=== PATIENT | male | born 1940 | race Caucasian/White ===

== ENCOUNTER → 2018-08-12 05:11 | Day surgery (SDC) | payer OTHER ==
[~2018-08-12 05:11] MED LIST: COREG25 MG PO; COUMADIN2 MG PO; COUMADIN3 MG PO; CYMBALTA20 MG PO; FUROSEMIDE40 MG PO; ISOSORBIDE MONO30 M1 PO; LIPITOR40 MG PO; NITROQUICK0.4 MG SL; OMEPRAZOLE20 M1 PO; TEGRETOL 100 M100 MG PO; XOPENEX HFA15 GM INH; ZESTRIL40 MG PO; [UNRECOGNIZED DRUG - OTHER]
[2018-08-12 06:06] LABS: BASOPHILS 0.3 % (0-2); EOSINOPHILS 2.1 % (0-7); HEMATOCRIT 49.4 % (42.0-54.0); HEMOGLOBIN 16.4 g/dL (13.5-17.5); IMMATURE GRANULOCYTES 0.3 % (0-5); LYMPHOCYTES 38.2 % (15-50); MCH 30.1 pg (26.0-34.0); MCHC 33.2 g/dL (31.0-37.0); MCV 90.8 fL (80.0-100.0); MEAN PLATELET VOLUME 12.7 fL (7.4-10.4); NEUTROPHILS 50.1 % (40-80); PLATELET COUNT 154 10x3/uL (130-400); RBC 5.44 10x6/uL (4.20-6.10); RDW 14.5 % (11.5-14.5); WBC 7.3 10x3/uL (4.8-10.8)
[2018-08-12 06:16] LABS: APTT 28.5 SECONDS (22.8-39.4); INR 1.01 (0.85-1.17); PROTIME 12.9 SECONDS (11.6-15.0)
[2018-08-12 06:37] LABS: ALBUMIN 3.2 g/dL (3.4-5.0); ALKALINE PHOSPHATASE 96 U/L (46-116); ALT (SGPT) 25 U/L (10-68); BILIRUBIN - TOTAL 0.28 mg/dL (0.2-1.3); CALC OSMOLALITY 285 mosm/kg (275-300); CALCIUM 8.6 mg/dL (8.5-10.1); CARBON DIOXIDE 20.7 mmol/L (21.0-32.0); CHLORIDE - SERUM 110 mmol/L (98-107); CREATININE - SERUM 0.9 mg/dL (0.6-1.3); GLUCOSE 122 mg/dL (74-106); POTASSIUM - SERUM 4.1 mmol/L (3.5-5.1); PROTEIN - SERUM 7.6 g/dL (6.4-8.2); SODIUM 142 mmol/L (136-145); UREA NITROGEN 18 mg/dL (7-18); eGFR NON AFRICAN AMERICAN 87 mL/min (90-120)
== END | disposition home or self-care (01) ==
LOC: D.OPS 07-03 09:15
PROVIDERS: Anesthesiology
DX: Z53.09 Procedure and treatment not carried out because of other contraindication (principal)

== ENCOUNTER 2018-08-12 05:15 | Day surgery (SDC) | payer OTHER ==
[~2018-08-12] VITALS: Ht 185.4 cm; Wt 120.2 kg
[2018-08-12] MEDS ORDERED: [UNRECOGNIZED DRUG - OTHER] (06:18)
[2018-08-12] MEDS ORDERED: LIPITOR40 MG PO (06:19)
[2018-08-12] MEDS ORDERED: TEGRETOL 100 M100 MG PO (06:22)
[2018-08-12] MEDS ORDERED: FUROSEMIDE40 MG PO (06:23)
[2018-08-12] MEDS ORDERED: CYMBALTA20 MG PO (06:23)
[2018-08-12] MEDS ORDERED: COREG25 MG PO (06:23)
[2018-08-12] MEDS ORDERED: NITROQUICK0.4 MG SL (06:24)
[2018-08-12] MEDS ORDERED: ZESTRIL40 MG PO (06:24)
[2018-08-12] MEDS ORDERED: ISOSORBIDE MONO30 M1 PO (06:24)
[2018-08-12] MEDS ORDERED: COUMADIN2 MG PO (06:25)
[2018-08-12] MEDS ORDERED: OMEPRAZOLE20 M1 PO (06:25)
[2018-08-12] MEDS ORDERED: COUMADIN3 MG PO (06:26)
[2018-08-12] MEDS ORDERED: XOPENEX HFA15 GM INH (06:27)
== END 2018-08-12 08:15 | disposition home or self-care (01) ==
LOC: D.OPS 05:15
DX: Z53.09 Procedure and treatment not carried out because of other contraindication (principal)

== ENCOUNTER 2019-08-20 06:21 | Outpatient (CLI) | payer OTHER ==
[~2019-08-20] VITALS: Ht 185.4 cm; Wt 112.7 kg
--- NOTE | ~2019-08-20 | HEMODYNAMI ---
PATIENT:HERBERT SCALES MEDICAL RECORD: [id number] : 42 LOCATION:[facility] ADMISSION DATE: 08/20/19 Generatedon:08/20/201910:06 Patient name: HERBERT SCALES Patient #: [id number] SSN: D OB: 1940 Date of study: 08/20/2019 Page: Of Hemodynamic Procedure Report Patient Data Patient Demographics Procedure consent was obtained First Name: HERBERT Gender: Male Last Name: LOYDA : 1940 Patient #: [id number] Age: 79 year(s) Race: Unknown Additional ID: [id number] Contact details Address: [address] [place] [address] State: [place] City: [place] Zip code: [address] Past Medical History Allergies: No known allergies Admission Admission Data Admission Date: 08/20/2019 Admission Time: 6:21 Height (in.): 73 BSA: 2.36 (m2) Height (cm.): 185.42 BMI: 32.72 (kg/m2) Weight (lbs.): 248 Weight (kg.): 112.49 Procedure Procedure Types Cath Procedure Peripheral Cath Diagnostic Procedure Chief Power Dispatcher Peripheral Procedures Venography IVC/SVC IVC Filter Retreival Procedure Description Procedure Date Procedure Date: 08/20/2019 Procedure Start Time: 9:45 Procedure Staff Name Function Tobias Henderson MD Performing Physician Ro Amador RT Forger Helper Susanna Aponte RN Nurse Bart Garcia RT Scrub Procedure Data Cath Procedure Fluoroscopy Diagnostic fluoroscopy Total fluoroscopy Time: 2.2 time: 2.2 min min Diagnostic fluoroscopy Total fluoroscopy dose: 637 dose: 637 mGy mGy Contrast Material Contrast Material Type Amount (ml) Isovue 300 45 Diagnostic catheters Device Type Used For End Catheter Placement Merit ULTRA BOLUS FLUSH 5Fr 65CM catheter ([id number]) Procedure Medications Medication Administration Route Dosage Heparin Flush Bag added to field 2 bags (1000units/500ml NS) Lidocaine 1% added to field 20 Versed I.V. 1 mg Fentanyl I.V. 50 mcg Hemodynamics Rest BSA: 2.36 (m2) O2 Consumption: Estimated: 267.29 (ml/min) O2 Consumption indexed : Estimated:113.26 (ml/min/m) Heart Rate: 67 (bpm) Snapshots Pre Cath Intra NCS Post Cath Vital Signs Time Heart Resp SPO2 etCO2 NIBP (mmHg) Rhythm Pain Sedation Rate (ipm) (%) (mmHg) Status Level (bpm) 9:17:42 70 19 98 28.5 147/79(119) NSR 0 (11) 10(A) , No pain 9:22:41 79 12 99 32.3 Measuring NSR 0 (11) 10(A) , No pain 9:22:45 70 11 99 32.3 144/80(110) NSR 0 (11) 10(A) , No pain 9:27:05 82 25 99 32.3 135/83(115) NSR 0 (11) 10(A) , No pain 9:31:19 72 17 99 33 131/82(106) NSR 0 (11) 10(A) , No pain 9:36:18 77 16 99 32.3 Measuring NSR 0 (11) 10(A) , No pain 9:36:24 77 14 100 32.2 152/90(115) NSR 0 (11) 10(A) , No pain 9:40:40 82 11 100 32.3 145/86(117) NSR 0 (11) 10(A) , No pain 9:44:58 77 14 100 33.8 157/89(116) NSR 0 (11) 10(A) , No pain 9:49:19 76 18 100 20.2 150/88(114) NSR 0 (11) 8(A) , No pain 9:53:45 81 25 98 0 134/70(111) NSR 0 (11) 8(A) , No pain 9:58:01 76 16 98 0 132/81(109) NSR 0 (11) 8(A) , No pain 10:02:17 80 12 97 13.5 130/81(110) NSR 0 (11) 8(A) , No pain Medications Time Medication Route Dose Verified Delivered Reason Notes Effec tiveness by by 9:37:01 Heparin Flush added 2 Tobias Collado used for Bag to bags Beatriz Henderson procedure (1000units/500ml field MD GEE NS) 9:37:13 Lidocaine 1% added 20ml Tobias Collado for local to vial Beatriz Henderson anesthetic field MD GEE 9:46:09 Versed I.V. 1 mg Tobias Mullins for Beatriz Aponte RN sedation 9:46:22 Fentanyl I.V. 50 Tobias Robertsoni for mcg Beatriz Aponte RN sedation Procedure Log Time Note 9:12:44 Patient Height : 73 inches 9:12:49 Patient Weight : 248 lbs 9:13:12 Time tracking: Regular hours (M-F 7:00 - 5:00) 9:14:13 Plan of Care:Hemodynamics will remain stable., Cardiac rhythm will remain stable., Comfort level will be maintained., Respiratory function will remain adequate., Patient/ family verbilizes understanding of procedure., Procedure tolerated without complication., Recovers from procedure without complications.. 9:14:22 Patient received from Outpatients to IR Alert and oriented. Tansferred to table in Supine position. 9:14:26 Signed procedure consent form obtained from patient. 9:14:33 H&P Date Dictated: 08/20/2019 Within 30 days and on chart., H&P Addendu m completed by physician on day of procedure. (MUST COMPLETE FOR ALL OUTPATIENTS). 9:14:35 Pre-procedure instructions explained to patient. 9:14:36 Pre-op teaching completed and patient verbalized understanding. 9:14:40 Family unavailable. 9:14:42 Patient NPO since Midnight. 9:15:08 Patient allergic to No known allergies 9:15:17 Is the patient allergic to Iodine/contrast media? No. 9:15:19 Is patient on blood thinner?Yes 9:15:36 Patient diabetic? No. 9:15:38 - 9:15:43 ----Pre-sedation anethsthesia assessment.---- 9:15:47 Previous problem with sedation/anesthesia? No ? 9:15:50 Snore? No 9:15:53 Sleep apnea? No 9:15:57 Deviated septum? No 9:15:59 Opens mouth fully? Yes 9:16:01 Sticks out tongue? Yes 9:16:08 Airway obstruction? Yes COPD 9:16:11 Dentures? No ? 9:16:22 IV patent on arrival in right wrist with D5/.45%NaCl at O. 9:16:24 - 9:16:31 ECG and BP/O2 sat monitors applied to patient. 9:16:33 Vital chart was started 9:16:35 Baseline sample Acquired. 9:16:37 Full Disclosure recording started 9:16:39 - 9:16:53 Use device set IR Diagnostic 9:16:55 Tegaderm 4 x 4 (1626W) opened to sterile field. 9:16:56 Sterile Angiographic Pack opened to sterile field. 9:16:57 Bag Decanter () opened to sterile field. 9:16:58 ACIST Manifold (32802) opened to sterile field. 9:17:00 ACIST Hand Control (33798) opened to sterile field. 9:17:01 ACIST Syringe (89572) opened to sterile field. 9:17:24 [employer]SON 145cm wire ([id number]) opened to sterile field. 9:17:30 - 9:17:44 Right neck area was prepped with chlora-prep and draped in sterile fashion 9:18:37 Maximum allowable contrast dose (3.7 X eGFR X 0.75)213.675 ml. 9:18:44 Fire Safety Assessment: A--An alcohol-based skin anteseptic being used preoperatively., C--Open oxygen or nitrous oxide is being used. 9:19:07 - 9:37:01 Heparin Flush Bag (1000units/500ml NS) 2 bags added to field was administered by Tobias Henderson MD; used for procedure; Verbal order read back and verified. 9:37:13 Lidocaine 1% 20ml vial added to field was administered by Tobias hamilton MD; for local anesthetic; Verbal order read back and verified. 9:44:55 Physician arrived 9:44:56 --------ALL STOP TIME OUT------ 9:44:57 Final Timeout: patient, procedure, and site verified with staff and physician. All members of the team are in agreement. 9:45:37 Procedure started. 9:45:47 Local anesthetic to right IJ vein with Lidocaine 1% by Tobias Henderson MD.INITIAL ACCESS ONLY 9:46:09 Versed 1 mg I.V. was administered by Susanna Aponte RN; for sedation; Verbal order read back and verified. 9:46:22 Fentanyl 50 mcg I.V. was administered by Susanna Aponte RN; for sedation; Verbal order read back and verified. 9:49:24 SHEATH 6FR Dawson (VXL768) opened to sterile field. 9:49:27 A [employer] ULTRA BOLUS FLUSH 5Fr 65CM catheter ([id number]) was advanced over the wire and used for . 9:49:32 Venous access obtained using ultrasound guidance. 9:53:44 BANNER .035 145 glide wire (G08238) opened to sterile field. 9:53:51 CXI Catheter 90cm (D99700) opened to sterile field. 10:02:13 Venogram performed 10:02:19 Procedure ended.(Physican Out) 10:02:53 Fluoroscopy time 02.20 minutes. 10:02:59 Fluoroscopy dose: 637 mGy 10:02:59 Flurop Dose total: 637 10:03:14 Contrast amount:Isovue 300 45ml. 10:05:38 Procedure and supply charges have been captured, reviewed, submitted an d are correct. 10:06:48 Vital chart was stopped Device Usage Item Name Manufacture Quantity Catalog Number Hospital Part Current Fl nimal Lot# / Charge Number Stock Stock Serial# Code Tegaderm 4 x 4 3M 1 [id number] 5 (1626W) Sterile Cardinal 1 [id number] 000560 494766 5 Angiographic Health Pack Bag Decanter Microtek 1 2001S 452771 33821 897320 5 (2001S) Medical Inc. ACIST Manifold Acist 1 58842 187655 475346 494531 5 (66146) Medical Systems Inc ACIST Hand Acist 1 95182 082908 360273 197662 5 Control Medical (62285) Systems Inc ACIST Syringe Acist 1 98562 669877 562997 111671 20 (17061) Medical Systems Inc BENTSON 145cm Cook Medical 1 I32072 892711 619297 5 wire (P42075) SHEATH 6FR Terumo 1 [id number] 242765 611287 506384 40 Dawson (DKW838) Merit ULTRA Merit 1 [id number] 358792 349375 5 BOLUS FLUSH Medical 5Fr 65CM catheter ([id number]) [facility] [employer] 1 V79840 215271 301828 599604 5 .035 145 glide wire (J13133) CXI Catheter [employer] 1 Z71234 988778 805638 041902 5 6959444 90cm (R13874) Signature Audit [place] Stage Time Signature Unsigned Intra-Procedure 08/20/2019 Ro Amador 10:06:44 AM RT(R) [place] [address] [place] [address]
[2019-08-20 06:52] LABS: BASOPHILS 0.2 % (0-2); EOSINOPHILS 2.8 % (0-7); HEMATOCRIT 44.2 % (42.0-54.0); HEMOGLOBIN 14.3 g/dL (13.5-17.5); IMMATURE GRANULOCYTES 0.2 % (0-5); LYMPHOCYTES 23.3 % (15-50); MCH 29.4 pg (26.0-34.0); MCHC 32.4 g/dL (31.0-37.0); MCV 90.9 fL (80.0-100.0); MEAN PLATELET VOLUME 11.4 fL (7.4-10.4); MONOCYTES 6.3 % (2-11); NEUTROPHILS 67.2 % (40-80); PLATELET COUNT 155 10x3/uL (130-400); RBC 4.86 10x6/uL (4.20-6.10); RDW 16.7 % (11.5-14.5); WBC 8.4 10x3/uL (4.8-10.8)
[2019-08-20 07:14] LABS: CALC OSMOLALITY 287 mosm/kg (275-300); CALCIUM 8.4 mg/dL (8.5-10.1); CHLORIDE - SERUM 107 mmol/L (98-107); GLUCOSE 98 mg/dL (74-106); POTASSIUM - SERUM 3.8 mmol/L (3.5-5.1); SODIUM 143 mmol/L (136-145); UREA NITROGEN 22 mg/dL (7-18); eGFR NON AFRICAN AMERICAN 77 mL/min (90-120)
[2019-08-20 07:22] LABS: APTT 30.7 SECONDS (22.8-39.4); INR 1.09 (0.85-1.17); PROTIME 13.6 SECONDS (11.6-15.0)
[2019-08-20] MEDS ORDERED: BAYER CHEWABLE81 MG PO (08:37)
[2019-08-20] MEDS ORDERED: SPIRIVA18 MCG (08:38)
[2019-08-20] MEDS ORDERED: CYMBALTA20 MG (08:38)
[2019-08-20 08:52] VITALS: BP 121/62; Ht 185.4 cm; Wt 112.7 kg
--- NOTE | 2019-08-20 08:55 | HP ---
PATIENT: HERBERT SCALES MEDICAL RECORD: [id number] ACCOUNT: [id number] LOCATION:[facility] : 41 ADMISSION DATE: 08/20/19 PCP: No PCP HISTORY AND PHYSICAL EXAMINATION HISTORY OF PRESENT ILLNESS: The patient desired removal of inferior vena caval filter. He states it has been causing him pain. He has also seen on TV, where these filters can migrate, can become clogged or struts can break. His is a [place] filter. He also has a right wrist ganglion cyst. We wanted to get him in to see Dr. Galan for evaluation of repair of the ganglion cyst, but I am not sure that he was able to see Dr. Galan prior to his admission today. 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 I think this is a relative contraindication to removal of the filter. Anyhow, the patient insists on having the filter removed. He is to undergo bilateral lower extremity venous Dopplers to rule out a DVT. His D-dimer was found to be elevated. If he does have a DVT, I would recommend that we not remove the filter. The patient is to undergo an inferior cavogram if there is no DVT. If there are no clots beneath the filter, I guess the filter could be removed. PAST MEDICAL AND SURGICAL HISTORY: Venous insufficiency. COPD. Dyslipidemia. MEDICINES: Acetaminophen, atorvastatin, nasal spray, duloxetine, isosorbide dinitrate, omeprazole, Spiriva inhaler. PHYSICAL EXAMINATION: GENERAL: The patient does not appear acutely ill. He does appear chronically ill. VITAL SIGNS: Reviewed. EARS: External ears appear normal. EYES: Extraocular movements are intact. NECK: Trachea midline. CHEST: No intercostal retractions. PULMONARY: Nonlabored, no stridor. ABDOMEN: Obese, nontender. IMPRESSION: 1. IVC filter, desires removal. 2. Ganglion cyst. PLAN: As described above. We will have to get a consult with Dr. Galan sometime in the future regarding removal of the ganglion cyst. TRANSINT:[id number] Voice Confirmation ID: [id number] DOCUMENT ID: [id number] HISTORY AND PHYSICAL [id number] SCALESHERBERT ODELL SUSI PEREZ MD at 0855 CC: [id number] DICTATION DATE: 08/20/19799 BRICK TOSSER: 08/20/19812 [facility] [address] [place] [address]
--- NOTE | 2019-08-20 14:21 | NUR ---
[address] JENNINGS SPOKE WITH PATIENT. MATTHEW. DRSG CDI. NO S/S OF HEMATOMA
== END 2019-08-20 13:15 ==
LOC: D.SP 06:21 → D.US 08:00 → D.SP 13:15
PROVIDERS: Radiology Diagnostic Radiology; ATTEND Surgery
DX: T82.858A Stenosis of other vascular prosthetic devices, implants and grafts, initial encounter (principal)

== ENCOUNTER 2020-02-23 05:25 | Day surgery (SDC) | payer OTHER ==
[~2020-02-23] VITALS: Ht 185.4 cm; Wt 108.9 kg
[~2020-02-23 05:25] MED LIST changes: +BAYER CHEWABLE81 MG PO; +CYMBALTA20 MG; +SPIRIVA18 MCG
[2020-02-23 06:35] LABS: BASOPHILS 0.4 % (0-2); EOSINOPHILS 1.5 % (0-7); HEMATOCRIT 49.3 % (42.0-54.0); HEMOGLOBIN 15.6 g/dL (13.5-17.5); IMMATURE GRANULOCYTES 0.1 % (0-5); LYMPHOCYTES 28.3 % (15-50); MCH 29.1 pg (26.0-34.0); MCHC 31.6 g/dL (31.0-37.0); MEAN PLATELET VOLUME 12.6 fL (7.4-10.4); MONOCYTES 7.2 % (2-11); NEUTROPHILS 62.5 % (40-80); PLATELET COUNT 127 10x3/uL (130-400); RBC 5.36 10x6/uL (4.20-6.10); RDW 15.7 % (11.5-14.5); WBC 6.7 10x3/uL (4.8-10.8)
[2020-02-23 06:47] LABS: CALC OSMOLALITY 285 mosm/kg (275-300); CALCIUM 8.3 mg/dL (8.5-10.1); CARBON DIOXIDE 23.5 mmol/L (21.0-32.0); CHLORIDE - SERUM 108 mmol/L (98-107); GLUCOSE 102 mg/dL (74-106); POTASSIUM - SERUM 3.9 mmol/L (3.5-5.1); SODIUM 142 mmol/L (136-145); UREA NITROGEN 22 mg/dL (7-18); eGFR NON AFRICAN AMERICAN 77 mL/min (90-120)
[2020-02-23 08:03] VITALS: BP 145/69; Ht 185.4 cm; Wt 108.9 kg
[2020-02-23] MEDS ORDERED: PRINIVIL10 MG PO (08:22)
[2020-02-23] MEDS ORDERED: CLARITIN 10 MG10 MG PO (08:23)
[2020-02-23] MEDS ORDERED: DERMAFUNGAL113 GM TP (08:24)
[2020-02-23] MEDS ORDERED: XARELTO20 MG PO (08:25)
[2020-02-23] MEDS ORDERED: XOPENEX HFA15 GM INH (08:26)
[2020-02-23] MEDS ORDERED: ZOCOR10 MG PO (08:28)
--- NOTE | 2020-02-23 14:21 | NUR ---
8046 ALL DC CRITERIA MET. DC'D BACK TO [facility] WITH GUARDS. TAKEN OUT VIA WC WITH GUARDS. NO S/S OF ACUTE DISTRESS NOTED.
--- NOTE | 2020-02-25 10:43 | OP ---
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 PROCEDURE: Resection of arteriovenous malformation of the volar surface of the right distal forearm. SURGEON: Susi Perez MD MANUFACTURING PROJECT MANAGER: [facility] BLOOD LOSS: 25 cc. ANESTHESIA: General. COMPLICATIONS: None. The risks, possible complications and alternatives to the procedure were explained to the patient. He elects to proceed. The discussion specifically included, but was not limited to, bleeding requiring an emergency reoperation, infection, nerve injury as well as regrowth of the arteriovenous malformation. The patient has again expressed his concern that the inferior vena caval filter has not been removed. I told him that it should never be removed. He has numerous contraindications to having it removed. The patient thinks that it has somehow moved on its own. He was very insistent that we obtain some type of radiographic study to see if it is moved. I told him that I would do this. A KUB obtained postoperatively reveals that the IVC filter may have actually moved inferiorly so it is has not broken loose and gone cephalad. OPERATIVE COURSE: The patient was conveyed to the operating room electively on 02/23/2020. General anesthesia was induced by anesthesia staff. The right upper extremity was sterilely prepped and draped. The right wrist was supinated. An axial incision was accomplished over the arteriovenous malformation. I dissected down to it. Side branches that were feeding the arteriovenous malformation were ligated with 3-0 Vicryls. I then excised the arteriovenous malformation. Some tiny vessels were cauterized. Subcutaneous flaps were created sharply. The subdermis was approximated with interrupted 3-0 Vicryls. The skin was approximated with a running intracuticular 3-0 Vicryl. A sterile dressing was applied. The patient was then conveyed to the recovery room. He is going to be dismissed back to intermediate. There is no need for him to follow up with me in the office unless he develops a complication related to this operative procedure. I did not send him home with a prescription for a narcotic analgesic as this small incision really should not cause him much discomfort. TRANSINT:[id number] Voice Confirmation ID: [id number] DOCUMENT ID: [id number] OPERATIVE REPORT [id number] HERBERT SCALES cc: KEAGAN Abdi ROBERT MD at 1043 CC: [id number] DICTATION DATE: 02/23/20 1559 PATENT CLERK: 02/23/20 1907 [facility] 02/23/20 [place] [id number]
== END 2020-02-23 13:45 ==
LOC: D.OPS 05:25
PROVIDERS: ATTEND Surgery
DX: Q27.39 Arteriovenous malformation, other site (principal)